=== PATIENT | male | born 1945 | race Two or more races ===

== ENCOUNTER → 2019-09-12 | Outpatient (CLI) | payer OTHER ==
[~2019-09-12] MED LIST: ATENOLOL50 MG PO; METFORMIN HCL500 MG PO
== END | disposition home or self-care (01) ==
LOC: SONOGRAMA 11:36
DX: M75.121 Complete rotator cuff tear or rupture of right shoulder, not specified as traumatic (principal)

== ENCOUNTER 2021-03-23 05:58 | Day surgery (SDC) | payer OTHER | END 2021-03-23 12:00 | disposition home or self-care (01) | LOC: CIR.AMB 05:58 | PROVIDERS: ATTEND Orthopaedic Surgery Hand Surgery | DX: G56.22 Lesion of ulnar nerve, left upper limb (principal); Z20.822 Contact with and (suspected) exposure to COVID-19 ==